=== PATIENT | female | born 1995 | race Asian ===

== ENCOUNTER 2023-05-28 23:59 | Emergency (ER) | payer SELFPAY ==
[~2023-05-28] VITALS: Ht 147.3 cm; Wt 51.4 kg
[~2023-05-28 23:59] MED LIST: IBU600 MG PO
[2023-05-29] VITALS: TEMP 98.9
[2023-05-29 00:29] LABS: BASO % 0.2 % (0.0-2.0); EOS # 0.2 K/mm3 (0.0-0.7); EOS % 2.2 % (0.0-4.0); GRAN # 6.1 K/mm3 (1.4-6.5); GRAN % 65.6 % (42.2-75.2); LYMPH # 2.4 K/mm3 (1.2-3.4); LYMPH % 25.9 % (20.0-51.0); MEAN CELL VOLUME 84 fl (80.0-100.0); MEAN CORPUSCULAR HEMOGLOBIN 29 pg (27-31); MEAN CORPUSCULAR HGB CONC 34 g/dl (33.0-37.0); MONO # 0.5 K/mm3 (0.1-0.6); MONO % 5.7 % (1.7-9.3); PLATELET COUNT 269 K/mm3 (130-400); RED BLOOD COUNT 3.51 M/mm3 (4.10-5.30); REDCELL DISTRIBUTION WIDTH-CV 13.8 % (11.5-14.5)
[2023-05-29 00:30] LABS: HEMATOCRIT 29.3 % (37.0-47.0)
[2023-05-29 00:34] LABS: COLLECTION METHOD CLEAN CATCH
[2023-05-29 00:43] LABS: URINE APPEARANCE Clear (CLEAR/HAZY); URINE BLOOD Negative (NEGATIVE); URINE COLOR Yellow (YELLOW); URINE GLUCOSE Negative (NEGATIVE); URINE KETONE Negative (NEGATIVE); URINE NITRATE Negative (NEGATIVE); URINE PROTEIN(semi-quant) Negative (NEGATIVE); URINE UROBILINOGEN 0.2 E.U/dL (0.2-1.0)
[2023-05-29 00:47] LABS: URINE BACTERIA Rare /hpf (NONE SEEN); URINE RBC 0-2 /hpf (0-2)
[2023-05-29 00:47] LABS: ALBUMIN 2.9 gm/dL (3.5-5.0); BILIRUBIN,TOTAL 0.2 mg/dL (0.2-1.2); C-REACTIVE PROTEIN 0.81 mg/dL (0.00-0.50); CALCIUM 8.6 mg/dL (8.4-10.2); CREATININE, serum 0.53 mg/dL (0.57-1.11); MAGNESIUM 1.8 mg/dL (1.6-2.6); POTASSIUM 3.5 mmol/L (3.5-4.5); TOTAL PROTEIN 6.8 gm/dL (6.2-8.1)
--- NOTE | 2023-05-29 02:12 | NUR ---
0140- THIS NURSE AT BEDSIDE. PER ED REQUEST FOR BEDSIDE MONITORING. PATIENT HAS NO NOTED PRENTATAL CARE AND DOESN'T KNOW LMP. BEDSIDE SONO PER ED PHYSICIAN DETERMINED 26 WEEK . EFMX2 APPLIED. PATIENT DENIES BLEEDING, CONTRACTIONS OR LEAKING OF FLUID. BASELINE OF 150BPM WITH MINIMAL VARIABLITY. 0203- THIS NURSE AT BEDSIDE ADJUSTING MONITORS. VARIABLE DECELS NOTED INTO THE 60s THAT LASTED APPROXIMATELY 60 SECONDS. NO CONTRACTIONS NOTED IN [place] DURING DURATION OF MONITORING. 0210- DR. JOINER NOTIFIED. STATED TO HAVE THE PATIENT SCHEDULE AN APPOINTMENT WITH THE OFFICE EARLY WEDNESDAY MORNING TO GET ACCURATE SONOGRAM AND CHECK. 0212- MONITORS REMOVED. PATIENT EDUCATED ON SCHEDULING APPOINTMENT ON WEDNESDAY USING VOICE SHOE TRIMMER. PATIENT DENIES HAVING QUESTIONS AT THIS TIME.
[2023-05-29 02:34] VITALS: BP 94/60; PULSE 80
== END 2023-05-29 02:34 | disposition home or self-care (01) ==
LOC: COL.ER 23:59
PROVIDERS: Emergency Medicine
DX: O9A.212 Injury, poisoning and certain other consequences of external causes complicating pregnancy, second trimester (principal); R10.9 Unspecified abdominal pain; M54.9 Dorsalgia, unspecified; Z3A.26 26 weeks gestation of pregnancy; W18.30XA Fall on same level, unspecified, initial encounter
CPT/HCPCS: J7030

== ENCOUNTER 2024-01-20 12:07 | Emergency (ER) | payer MEDICAID ==
[~2024-01-20] VITALS: Ht 149.9 cm; Wt 74.5 kg
[2024-01-20 12:17] VITALS: BP 116/74
[2024-01-20] MEDS ORDERED: ZYRTEC 10MG10 MG PO (12:38)
[2024-01-20 12:45] VITALS: PULSE 71
== END 2024-01-20 12:52 | disposition home or self-care (01) ==
LOC: COL.ER 12:07
DX: J30.2 Other seasonal allergic rhinitis (principal)
CPT/HCPCS: J1010

== ENCOUNTER 2024-03-07 16:38 | Emergency (ER) | payer MEDICAID ==
[~2024-03-07] VITALS: Ht 160 cm; Wt 65.9 kg
[~2024-03-07 16:38] MED LIST changes: +ZYRTEC 10MG10 MG PO
[2024-03-07] MEDS ORDERED: Ibuprofen 400 MG TAB PO ONE (17:30)
[2024-03-07] MEDS ORDERED: Acetaminophen 500 MG TAB PO ONE (17:30)
[2024-03-07 18:14] VITALS: BP 93/59; PULSE 98; TEMP 101
== END 2024-03-07 18:13 | disposition home or self-care (01) ==
LOC: COL.ER 16:38
DX: B34.9 Viral infection, unspecified (principal)